=== PATIENT | male | born 1925 | race Caucasian/White ===

== ENCOUNTER → 2016-09-09 | Outpatient (CLI) | payer MEDICARE ==
[~2016-09-09] MED LIST: ASPI81 PO; FISH1000 PO; OS-CTAB3 PO; SIMV10TA OR; SYNT25TA PO; VITA400C70 OR
[2016-09-09 17:02] LABS: ALKALINE PHOSPHATASE 71 U/L (45-117); ALT (GPT) 22 U/L (12-78); ANION GAP 9 MEQ/L (5-15); AST (GOT) 23 U/L (15-37); BICARBONATE 27.2 MEQ/L (21.0-32.0); BLOOD UREA NITROGEN 23 MG/DL (7-18); CHLORIDE 106 MEQ/L (98-107); GLOMERULAR FILTRATION RATE 86 ML/MIN (>89); GLUCOSE,FASTING 82 MG/DL (74-99); HDL CHOLESTEROL 50.5 MG/DL (40.0-60.0); LDL CHOLESTEROL 65 MG/DL (0-99); POTASSIUM 3.9 MEQ/L (3.5-5.1); SODIUM (NA) 142 MEQ/L (136-145); TOTAL BILIRUBIN ADULT 0.8 MG/DL (0.2-1.0)
== END ==
LOC: PLAB 11:52
PROVIDERS: ATTEND Family Medicine
DX: E78.5 Hyperlipidemia, unspecified (principal); E03.8 Other specified hypothyroidism
CPT/HCPCS: 36415; 80053; 80061; 84443